=== PATIENT | male | born 1990 | race Caucasian/White ===

== ENCOUNTER 2019-12-12 13:26 | Emergency (ER) | payer MEDICAID, OTHER ==
[~2019-12-12] VITALS: Ht 182.9 cm; Wt 70.4 kg
[~2019-12-12 13:26] MED LIST: ACET1TAB12 PO; LIDOcaine 1% W/epiNEPHrine 1:100,000 20ml vial ONE
[2019-12-12] MEDS ORDERED: SULF1TAB49 PO (14:30)
[2019-12-12] MEDS ORDERED: CEPH250T PO (14:30)
[2019-12-12] MEDS ORDERED: cephalexin 250mg capsule PO STA (14:53)
[2019-12-12] MEDS ORDERED: sulfamethoxazole/trimethoprim DS (800/160mg) tablet PO ONE (14:55)
[2019-12-12 15:05] VITALS: BP 139/90
== END 2019-12-12 15:06 | disposition home or self-care (01) ==
LOC: ER 13:27
DX: L02.416 Cutaneous abscess of left lower limb (principal); L03.116 Cellulitis of left lower limb; F12.90 Cannabis use, unspecified, uncomplicated; F15.90 Other stimulant use, unspecified, uncomplicated; F10.99 Alcohol use, unspecified with unspecified alcohol-induced disorder; Z56.0 Unemployment, unspecified; Z98.890 Other specified postprocedural states; Z79.899 Other long term (current) drug therapy; Y90.9 Presence of alcohol in blood, level not specified
CPT/HCPCS: 10060; 99283

== ENCOUNTER 2020-09-19 14:37 | Emergency (ER) | payer MEDICAID, OTHER ==
[~2020-09-19] VITALS: Ht 185.4 cm; Wt 52.0 kg
[~2020-09-19 14:37] MED LIST changes: -LIDOcaine 1% W/epiNEPHrine 1:100,000 20ml vial ONE
[2020-09-19 14:41] VITALS: BP 142/93
[2020-09-19] MEDS ORDERED: CefTRIAXone 250MG IM Kit w/LIDOcaine IM ONE (16:00)
[2020-09-19] MEDS ORDERED: azithromycin 250mg tablet PO ONE (16:00)
== END 2020-09-19 16:28 | disposition home or self-care (01) ==
LOC: ER 14:38
DX: A64 Unspecified sexually transmitted disease (principal); F15.10 Other stimulant abuse, uncomplicated; F12.10 Cannabis abuse, uncomplicated; A54.9 Gonococcal infection, unspecified; Z79.899 Other long term (current) drug therapy
CPT/HCPCS: 36415; 87491; 87591; 96372; 99283; J0696

== ENCOUNTER 2020-10-27 19:20 | Emergency (ER) | payer SELFPAY ==
[~2020-10-27] VITALS: Ht 182.9 cm; Wt 63.6 kg
[2020-10-27 19:23] VITALS: BP 125/75
[2020-10-27] MEDS ORDERED: CefTRIAXone 250MG IM Kit w/LIDOcaine IM ONE (20:00)
[2020-10-27] MEDS ORDERED: azithromycin 250mg tablet PO ONE (20:00)
[2020-10-27 20:25] LABS: CLARITY,URINE CLEAR (Clear); COLOR,URINE YELLOW (Yellow); GLUCOSE, URINE NEGATIVE (Neg); KETONES,URINE NEGATIVE (Neg); LEUKOCYTE ESTERASE ,URINE SMALL (Neg); NITRITES, URINE NEGATIVE (Neg); OCCULT BLOOD,URINE TRACE-INTACT (Neg); PROTEIN,URINE NEGATIVE (Neg); UROBILINOGEN,URINE 0.2 E.U/dL (0.2-1.0)
[2020-10-27 20:27] LABS: UA COLLECTION TYPE CLN CATCH MIDSTREAM
[2020-10-27 20:32] LABS: RBC,URINE 0-2 /HPF (0-2); SQUAMOUS EPITHELIAL CELL,UR FEW /LPF (FEW); WBC,URINE TNTC /HPF (0-4)
[2020-10-27 20:34] LABS: BACTERIA,URINE 1+ /HPF (Neg)
[2020-10-27 20:37] LABS: MUCUS STRANDS MANY /LPF (Neg)
== END 2020-10-27 20:22 | disposition home or self-care (01) ==
LOC: ER 19:20
DX: A63.8 Other specified predominantly sexually transmitted diseases (principal); F12.90 Cannabis use, unspecified, uncomplicated; F15.90 Other stimulant use, unspecified, uncomplicated; Z56.0 Unemployment, unspecified; Z72.89 Other problems related to lifestyle; Z79.899 Other long term (current) drug therapy; Z72.0 Tobacco use
CPT/HCPCS: 36415; 81001; 87088; 87491; 87591; 96372; 99283; J0696

== ENCOUNTER 2021-02-03 16:49 | Emergency (ER) | payer MEDICAID ==
[~2021-02-03] VITALS: Ht 182.9 cm; Wt 71.0 kg
[2021-02-03 17:03] VITALS: BP 131/75
[2021-02-03] MEDS ORDERED: azithromycin 250mg tablet PO ONE (17:05)
[2021-02-03] MEDS ORDERED: CefTRIAXone 1000mg IM Kit (w/lidocaine diluent) IM STA (17:05)
== END 2021-02-03 17:43 | disposition home or self-care (01) ==
LOC: ER 16:50
DX: A64 Unspecified sexually transmitted disease (principal); F12.90 Cannabis use, unspecified, uncomplicated; F15.90 Other stimulant use, unspecified, uncomplicated; Z56.0 Unemployment, unspecified; Z72.89 Other problems related to lifestyle; Z79.899 Other long term (current) drug therapy
CPT/HCPCS: 36415; 87491; 87591; 96372; 99283; J0696

== ENCOUNTER 2021-05-25 16:38 | Emergency (ER) | payer MEDICAID, OTHER ==
[~2021-05-25] VITALS: Ht 182.9 cm; Wt 63.6 kg
[2021-05-25 16:48] VITALS: BP 116/79
[2021-05-25] MEDS ORDERED: CefTRIAXone 1000mg IM Kit (w/lidocaine diluent) IM STA (16:57)
[2021-05-25] MEDS ORDERED: azithromycin 250mg tablet PO ONE (17:00)
[2021-05-25 17:21] LABS: CLARITY,URINE CLOUDY (Clear); COLOR,URINE YELLOW (Yellow); GLUCOSE, URINE NEGATIVE (Neg); KETONES,URINE NEGATIVE (Neg); LEUKOCYTE ESTERASE ,URINE TRACE (Neg); NITRITES, URINE POSITIVE (Neg); OCCULT BLOOD,URINE TRACE-INTACT (Neg); PH,URINE 5.5 (4.8-8.0); PROTEIN,URINE 100 mg/dl (Neg)
[2021-05-25 17:22] LABS: UA COLLECTION TYPE CLN CATCH MIDSTREAM
[2021-05-25 17:32] LABS: CAL OXALATE CRYSTALS 2+ /HPF (NEGATIVE); MUCUS STRANDS MANY /LPF (Neg); SQUAMOUS EPITHELIAL CELL,UR FEW /LPF (FEW)
[2021-05-25 17:33] LABS: BACTERIA,URINE 1+ /HPF (Neg); RBC,URINE 0-2 /HPF (0-2); WBC,URINE TNTC /HPF (0-4)
== END 2021-05-25 20:10 | disposition home or self-care (01) ==
LOC: ER 16:39
DX: A64 Unspecified sexually transmitted disease (principal); R30.0 Dysuria; F12.90 Cannabis use, unspecified, uncomplicated; F15.90 Other stimulant use, unspecified, uncomplicated; Z72.89 Other problems related to lifestyle; Z56.0 Unemployment, unspecified; Z59.0 Homelessness; Z98.890 Other specified postprocedural states; Z79.899 Other long term (current) drug therapy
CPT/HCPCS: 36415; 81001; 87088; 87491; 87591; 96372; 99283; J0696

== ENCOUNTER 2021-10-18 11:52 | Emergency (ER) | payer OTHER ==
[~2021-10-18] VITALS: Ht 182.9 cm; Wt 60.0 kg
[2021-10-18 12:03] VITALS: BP 113/80
[2021-10-18] MEDS ORDERED: PENICILLIN G BENZATHINE 2,400,000 UNIT/4 ML SYRINGE IM STA (12:41)
[2021-10-18] MEDS ORDERED: CefTRIAXone 1000mg IM Kit (w/lidocaine diluent) IM STA (12:41)
[2021-10-18] MEDS ORDERED: azithromycin 250mg tablet PO ONE (12:45)
[2021-10-18] MEDS ORDERED: DOXY100C76 PO (13:08)
== END 2021-10-18 13:19 | disposition home or self-care (01) ==
LOC: ER 11:52
DX: L08.89 Other specified local infections of the skin and subcutaneous tissue (principal)
CPT/HCPCS: 36415; 86592; 87491; 87591; 96372; 99284; J0561; J0696

== ENCOUNTER → 2022-03-29 | Emergency (ER) | payer MEDICAID ==
[~2022-03-29] VITALS: Ht 182.9 cm; Wt 63.6 kg
[~2022-03-29] MED LIST changes: +SULF1TAB49 PO; +TRAM50TA2 PO; +sulfamethoxazole/trimethoprim DS (800/160mg) tablet PO ONE
[2022-03-29 10:35] VITALS: BP 129/74
== END | disposition home or self-care (01) ==
LOC: ER 10:19
DX: L02.31 Cutaneous abscess of buttock (principal); L03.317 Cellulitis of buttock; F12.90 Cannabis use, unspecified, uncomplicated; F15.90 Other stimulant use, unspecified, uncomplicated; Z98.890 Other specified postprocedural states; Z72.89 Other problems related to lifestyle; Z56.0 Unemployment, unspecified; Z59.00 Homelessness unspecified; Z79.2 Long term (current) use of antibiotics; Z79.899 Other long term (current) drug therapy
CPT/HCPCS: 10060; 99283

== ENCOUNTER 2022-06-10 15:05 | Emergency (ER) | payer MEDICAID ==
[~2022-06-10] VITALS: Ht 182.9 cm; Wt 63.6 kg
[~2022-06-10 15:05] MED LIST changes: -SULF1TAB49 PO; -TRAM50TA2 PO; -sulfamethoxazole/trimethoprim DS (800/160mg) tablet PO ONE
[2022-06-10 15:25] VITALS: BP 112/77
[2022-06-10 16:04] LABS: CLARITY,URINE SLIGHTLY CLOUDY (Clear); COLOR,URINE YELLOW (Yellow); GLUCOSE, URINE NEGATIVE (Neg); KETONES,URINE NEGATIVE (Neg); LEUKOCYTE ESTERASE ,URINE TRACE (Neg); NITRITES, URINE NEGATIVE (Neg); OCCULT BLOOD,URINE MODERATE (Neg); PH,URINE 5.5 (4.8-8.0); PROTEIN,URINE 30 mg/dl (Neg); UROBILINOGEN,URINE 0.2 E.U/dL (0.2-1.0)
[2022-06-10 16:17] LABS: UA COLLECTION TYPE NON-SPECIFIED
[2022-06-10 16:19] LABS: BACTERIA,URINE 1+ /HPF (Neg); CAL OXALATE CRYSTALS FEW /HPF (NEGATIVE); MUCUS STRANDS MANY /LPF (Neg); SQUAMOUS EPITHELIAL CELL,UR FEW /LPF (FEW); WBC,URINE TNTC /HPF (0-4)
[2022-06-10 16:20] LABS: RBC,URINE 0-2 /HPF (0-2)
[2022-06-10] MEDS ORDERED: CefTRIAXone 1000mg IM Kit (w/lidocaine diluent) IM STA (17:01)
[2022-06-10] MEDS ORDERED: azithromycin 250mg tablet PO ONE (17:05)
[2022-06-10] MEDS ORDERED: PENICILLIN G BENZATHINE 2,400,000 UNIT/4 ML SYRINGE IM STA (17:22)
== END 2022-06-10 18:36 | disposition home or self-care (01) ==
LOC: ER 15:06
DX: A64 Unspecified sexually transmitted disease (principal); F12.10 Cannabis abuse, uncomplicated; F15.10 Other stimulant abuse, uncomplicated; Z59.00 Homelessness unspecified; Z56.0 Unemployment, unspecified; Z79.1 Long term (current) use of non-steroidal anti-inflammatories (NSAID)
CPT/HCPCS: 36415; 81001; 86592; 87077; 87088; 87185; 96372; 99284; J0561; J0696

== ENCOUNTER 2022-07-23 22:07 | Emergency (ER) | payer SELFPAY ==
[~2022-07-23] VITALS: Ht 182.9 cm; Wt 63.6 kg
[2022-07-24 02:07] VITALS: BP 110/75
[2022-07-24] MEDS ORDERED: DOXY100C77 PO (03:45)
== END 2022-07-24 04:06 | disposition home or self-care (01) ==
LOC: ER 22:07
DX: A64 Unspecified sexually transmitted disease (principal); F12.90 Cannabis use, unspecified, uncomplicated; F15.20 Other stimulant dependence, uncomplicated; Z56.0 Unemployment, unspecified; Z59.00 Homelessness unspecified
CPT/HCPCS: 99283

== ENCOUNTER 2023-03-18 11:22 | Emergency (ER) | payer OTHER ==
[~2023-03-18] VITALS: Ht 182.9 cm; Wt 63.6 kg
[2023-03-18 11:36] VITALS: BP 115/81
--- NOTE | 2023-03-18 11:47 | NUR ---
Pt in [facility]. Pt c/o dysuria, and yellow discharge coming out of the tip x2 days. Pt educated to POC. Pt in agreement. Pending providers eval and treatment.
[2023-03-18] MEDS ORDERED: CefTRIAXone 1000mg IM Kit (w/lidocaine diluent) IM STA (11:50)
[2023-03-18] MEDS ORDERED: DOXYCYCLINE 100MG CAPSULE PO ONE (11:50)
[2023-03-18 11:52] LABS: CLARITY,URINE CLOUDY (Clear); COLOR,URINE YELLOW (Yellow); GLUCOSE, URINE NEGATIVE (Neg); KETONES,URINE NEGATIVE (Neg); LEUKOCYTE ESTERASE ,URINE SMALL (Neg); NITRITES, URINE NEGATIVE (Neg); OCCULT BLOOD,URINE SMALL (Neg); PH,URINE 5.5 (4.8-8.0); PROTEIN,URINE NEGATIVE (Neg); UROBILINOGEN,URINE 0.2 E.U/dL (0.2-1.0)
[2023-03-18 11:57] LABS: UA COLLECTION TYPE VOIDED
[2023-03-18 12:05] LABS: BACTERIA,URINE 2+ /HPF (Neg); WBC,URINE TNTC /HPF (0-4)
[2023-03-18 12:06] LABS: RBC,URINE 0-2 /HPF (0-2); SQUAMOUS EPITHELIAL CELL,UR NONE SEEN /LPF (FEW)
[2023-03-18] MEDS ORDERED: DOXY100C76 PO (12:06)
== END 2023-03-18 12:38 | disposition home or self-care (01) ==
LOC: ER 11:22
DX: A64 Unspecified sexually transmitted disease (principal); F12.10 Cannabis abuse, uncomplicated; F15.10 Other stimulant abuse, uncomplicated; Z59.00 Homelessness unspecified; Z56.0 Unemployment, unspecified; Z79.899 Other long term (current) drug therapy
CPT/HCPCS: 81001; 87088; 96372; 99283; J0696

== ENCOUNTER 2023-04-18 21:22 | Emergency (ER) | payer OTHER ==
[~2023-04-18] VITALS: Ht 182.9 cm; Wt 63.6 kg
[2023-04-18 21:37] VITALS: BP 131/80
[2023-04-18 23:15] LABS: CLARITY,URINE CLOUDY (Clear); COLOR,URINE YELLOW (Yellow); GLUCOSE, URINE NEGATIVE (Neg); KETONES,URINE NEGATIVE (Neg); LEUKOCYTE ESTERASE ,URINE SMALL (Neg); NITRITES, URINE NEGATIVE (Neg); OCCULT BLOOD,URINE TRACE-INTACT (Neg); PH,URINE 6.5 (4.8-8.0); PROTEIN,URINE NEGATIVE (Neg); UROBILINOGEN,URINE 0.2 E.U/dL (0.2-1.0)
[2023-04-18] MEDS ORDERED: CefTRIAXone 500MG IM Kit w/LIDOcaine IM ONE (23:20)
[2023-04-18] MEDS ORDERED: ondansetron 4mg rapidly disintigrating tab PO ONE (23:20)
[2023-04-18] MEDS ORDERED: DOXYCYCLINE 100MG CAPSULE PO STA (23:20)
[2023-04-18] MEDS ORDERED: metroNIDAZOLE 500mg tablet PO ONE (23:20)
[2023-04-18 23:29] LABS: UA COLLECTION TYPE VOIDED
[2023-04-18] MEDS ORDERED: CefTRIAXone 1000mg IM Kit (w/lidocaine diluent) IM ONE (23:30)
[2023-04-18 23:32] LABS: WBC,URINE 20-30 /HPF (0-4)
[2023-04-18 23:34] LABS: AMORPHOUS PHOSPHATES 3+; MUCUS STRANDS NONE SEEN /LPF (Neg); RBC,URINE 0-2 /HPF (0-2); SQUAMOUS EPITHELIAL CELL,UR NONE SEEN /LPF (FEW)
[2023-04-18 23:35] LABS: YEAST FEW /HPF (NEGATIVE)
[2023-04-18 23:37] LABS: BACTERIA,URINE 1+ /HPF (Neg)
[2023-04-18] MEDS ORDERED: DOXY-1 PO (23:40)
== END 2023-04-19 00:26 | disposition home or self-care (01) ==
LOC: ER 21:23
DX: A63.8 Other specified predominantly sexually transmitted diseases (principal); F12.10 Cannabis abuse, uncomplicated; F15.10 Other stimulant abuse, uncomplicated; Z79.899 Other long term (current) drug therapy
CPT/HCPCS: 36415; 81001; 87088; 87491; 87591; 96372; 99284; J0696

== ENCOUNTER 2024-02-26 07:08 | Emergency (ER) | payer MEDICAID ==
[~2024-02-26] VITALS: Ht 182.9 cm; Wt 66.5 kg
[2024-02-26 07:22] VITALS: BP 129/84; PULSE 99; RESP 16; TEMP 98.6; O2SAT 98
[2024-02-26] MEDS: azithromycin 250mg tablet PO ONE (09:04)
[2024-02-26] MEDS: CefTRIAXone 500MG IM Kit w/LIDOcaine IM ONE (09:05)
[2024-02-26 10:13] LABS: SYPHILIS SCREENING TEST POC NEGATIVE (Negative)
[2024-02-26] MEDS ORDERED: DOXY-1 PO (10:23)
== END 2024-02-26 10:31 | disposition home or self-care (01) ==
LOC: ER 07:08
DX: A64 Unspecified sexually transmitted disease (principal); F12.90 Cannabis use, unspecified, uncomplicated; F15.90 Other stimulant use, unspecified, uncomplicated; Z79.1 Long term (current) use of non-steroidal anti-inflammatories (NSAID); Z79.2 Long term (current) use of antibiotics
CPT/HCPCS: 36415; 87081; 96372; 99283; J0696

== ENCOUNTER 2024-06-02 20:01 | Emergency (ER) | payer MEDICAID ==
[~2024-06-02] VITALS: Ht 182.9 cm; Wt 63.9 kg
[2024-06-02 20:03] VITALS: BP 140/96; PULSE 109; RESP 16; O2SAT 99
[2024-06-02 20:20] LABS: CLARITY,URINE CLOUDY (Clear); COLOR,URINE RED (Yellow)
[2024-06-02 20:22] LABS: UA COLLECTION TYPE CLN CATCH MIDSTREAM
[2024-06-02 20:28] LABS: BACTERIA,URINE FEW /HPF (Neg); MUCUS STRANDS NONE SEEN /LPF (Neg); RBC,URINE TNTC /HPF (0-2); SQUAMOUS EPITHELIAL CELL,UR FEW /LPF (FEW); TRANSITIONAL EPI CELLS,URINE FEW /HPF; WBC,URINE 0-4 /HPF (0-4)
[2024-06-02 20:54] LABS: BASOPHILS % (AUTO) 0.4 % (0-1); EOSINOPHILS # (AUTO) 0.2 X10'3 (0-0.9); EOSINOPHILS % (AUTO) 1.9 % (0-6); HEMOGLOBIN 14.3 g/dl (14.0-17.9); LYMPHOCYTES # (AUTO) 3.3 X10'3 (1.1-4.8); LYMPHOCYTES % (AUTO) 38.1 % (21-51); MEAN CORPUSCULAR HGB CONC 34.1 g/dL (33.0-36.5); MEAN CORPUSCULAR VOLUME 87.9 FL (78-98); MEAN PLATELET VOLUME 6.7 FL (7.4-10.4); MONOCYTES # (AUTO) 0.6 X10'3 (0-0.9); MONOCYTES % (AUTO) 7.1 % (2-12); NEUTROPHILS # (AUTO) 4.6 X10'3 (1.8-7.7); NEUTROPHILS % (AUTO) 52.5 % (42-75); PLATELET COUNT 292 X10'3 (140-440); RED BLOOD COUNT 4.78 X10'6 (4.70-6.10); RED CELL DISTRIBUTION WIDTH 14.1 % (11.5-14.5); WHITE BLOOD COUNT 8.7 X10'3 (4.5-11.0)
[2024-06-02 21:10] LABS: ALANINE AMINOTRANSFERASE 53 U/L (12-78); ALBUMIN 4.1 G/DL (3.4-5.0); ALBUMIN/GLOBULIN RATIO 1.2 (1.1-1.5); ALKALINE PHOSPHATASE 83 IU/L (46-116); ANION GAP 8 (8-16); ASPARTATE AMINO TRANSFERASE 19 U/L (10-37); BILIRUBIN,TOTAL 0.4 MG/DL (0.1-1.0); BLOOD UREA NITROGEN 18 MG/DL (7-18); BUN/CREATININE RATIO 23.4 (10.0-20.0); CALCIUM 8.9 MG/DL (8.5-10.1); CHLORIDE 102 MMOL/L (99-107); CREATININE 0.77 MG/DL (0.60-1.10); GLUCOSE 100 MG/DL (70-104); LIPASE 33 U/L (16-77); POTASSIUM 3.8 MMOL/L (3.5-5.1); SODIUM 139 MMOL/L (135-145); TOTAL CARBON DIOXIDE 29.2 MMOL/L (24-32); TOTAL PROTEIN 7.6 G/DL (6.4-8.2); eCRCL 122 ML/MIN; eGFR > 90 ML/MIN
[2024-06-02] MEDS: buprenorphine/naloxone 8MG-2MG SUBlingual film SL SCH (23:44)
[2024-06-03] MEDS ORDERED: DOXY-460 PO (00:14)
[2024-06-03] MEDS: CefTRIAXone 1000mg IM Kit (w/lidocaine diluent) IM ONE (01:58)
[2024-06-03] MEDS: DOXYCYCLINE 100MG CAPSULE PO STA (02:01)
[2024-06-03 02:13] VITALS: TEMP 98
[2024-06-04] MEDS ORDERED: BUPR1FIL3 SL (10:07)
[2024-06-06 08:00] LABS: CHLAMYDIA TRACHOMATIS, NAA Negative (Negative)
== END 2024-06-03 02:16 | disposition home or self-care (01) ==
LOC: ER 20:02
DX: N34.2 Other urethritis (principal); R31.9 Hematuria, unspecified; F11.23 Opioid dependence with withdrawal; F12.90 Cannabis use, unspecified, uncomplicated; F15.90 Other stimulant use, unspecified, uncomplicated; Z79.1 Long term (current) use of non-steroidal anti-inflammatories (NSAID); Z98.890 Other specified postprocedural states; Z72.89 Other problems related to lifestyle; Z59.00 Homelessness unspecified; Z56.0 Unemployment, unspecified
CPT/HCPCS: 36415; 74176; 80053; 81001; 83690; 85025; 87088; 87491; 87591; 96372; 99285; J0696

== ENCOUNTER 2024-06-04 09:47 | Emergency (ER) | payer MEDICAID ==
[~2024-06-04] VITALS: Ht 182.9 cm; Wt 64.2 kg
[~2024-06-04 09:47] MED LIST changes: +DOXY-460 PO
[2024-06-04 09:52] VITALS: BP 120/80; PULSE 83; RESP 18; TEMP 97.8; O2SAT 99
[2024-06-04] MEDS ORDERED: BUPR1FIL3 SL (10:07)
[2024-06-04] MEDS: buprenorphine/naloxone 8MG-2MG SUBlingual film SL SCH ×2 (10:30→10:34)
== END 2024-06-04 10:42 | disposition home or self-care (01) ==
LOC: ER 09:48
DX: F11.23 Opioid dependence with withdrawal (principal); F12.90 Cannabis use, unspecified, uncomplicated; F15.90 Other stimulant use, unspecified, uncomplicated; Z76.0 Encounter for issue of repeat prescription; Z79.1 Long term (current) use of non-steroidal anti-inflammatories (NSAID); Z79.899 Other long term (current) drug therapy; Z98.890 Other specified postprocedural states; Z72.89 Other problems related to lifestyle; Z56.0 Unemployment, unspecified; Z59.00 Homelessness unspecified
CPT/HCPCS: 99283

== ENCOUNTER 2025-07-15 21:24 | Emergency (ER) | payer MEDICAID ==
[~2025-07-15] VITALS: Ht 182.9 cm; Wt 63.5 kg
[~2025-07-15 21:24] MED LIST changes: -DOXY-460 PO
--- NOTE | 2025-07-15 22:00 | Physician Documentation ---
History of Present Illness ~ Chief Complaint: Narcotic Withdrawl Stated Complaint: WITHDRAWLS Time Seen by MD: 21:59 Primary Medical Doctor: landon HPI Patient presents to the emergency room requesting food and help with his narcotic withdrawal. Medication Reconciliation Allergies: Coded Allergies: No Known Allergies (Unverified , 06/04/24) Scheduled Acetaminophen with Codeine (Tylenol with Codeine #3 Tablet), 1 TABLET PO Q6H Past Medical History Past Medical History: *INFECTIOUS DZ*, [place] Past Surgical History: orthopedic surgeries Patient History: Patient reports no known family medical history. Alcohol Use: Occasionally Drug Use: marijuana, methamphetamine Lives In: Homeless Occupation: unemployed Review of Systems ROS All review of systems negative except as per HPI Physical Exam Vital Signs: Temperature: 98.2, Source: Oral, Heart Rate: 62, Respiratory Rate: 18, BP: 109/75, Pulse Oximetry: 100, Weight: 63.500 Oxygen Flow Rate: 0 Physical Exam General: Patient is awake, alert, oriented x4 in mild distress, yawning Head: Normocephalic and atraumatic. Eyes: Conjunctival normal. EOMI. PERRL. ENT: Mucous membranes moist. Neck: Supple, trachea is midline. Chest: Clear to auscultation bilaterally without rales, rhonchi, or wheezes. There is no accessory muscle use or retractions. Cardiac: RRR without murmurs, gallops, or rubs. Skin: Noted pillow reactions Progress Results/Orders Results/Orders Vital Signs 07/15/25 21:42 Temp 98.2 Pulse 62 Resp 18 B/P (MAP) 109/75 Pulse Ox 100 O2 Flow Rate 0 Medical Decision Making Findings Patient presents to the emergency room with narcotics withdrawal. Patient's vital signs are stable and he had not feel emergent labs or imaging is necessary. We will treat him empirically for some withdrawal symptoms. Departure Disposition: HOME / SELF CARE / HOMELESS Impression: Primary Impression: Narcotic withdrawal epilepsy Condition: Fair Discharge Instructions: Narcotic Withdrawal Referrals: NO PRIMARY CARE PROVIDER (PCP) Signature Scribe Signature: No scribe Attestation: The note accurately reflects work and decisions made by me.Omid Mojica MD 07/15/25 22:04 OMID MOJICA MD Jul 15, 2025 22:00
[2025-07-15] MEDS: ketorolac trometh 15mg/ml vial 15 MG/ML ML IM ONE (22:28)
[2025-07-15 22:44] VITALS: BP 130/72; PULSE 68; RESP 16; TEMP 98.2; O2SAT 96
== END 2025-07-15 22:45 | disposition home or self-care (01) ==
LOC: ER 21:25
DX: F11.23 Opioid dependence with withdrawal (principal); G40.909 Epilepsy, unspecified, not intractable, without status epilepticus; F12.90 Cannabis use, unspecified, uncomplicated; F15.90 Other stimulant use, unspecified, uncomplicated; Z98.890 Other specified postprocedural states
CPT/HCPCS: 96372; 99284; J1885; Q0163

== ENCOUNTER 2025-10-10 11:22 | Inpatient (IN) | payer MEDICAID ==
[~2025-10-10] VITALS: Ht 182.9 cm; Wt 66.8 kg
[2025-10-10 12:00] LABS: MEAN PLATELET VOLUME 6.7 FL (7.4-10.4)
[2025-10-10 12:02] LABS: RED CELL DISTRIBUTION WIDTH 13.4 % (11.5-14.5)
[2025-10-10] MEDS ORDERED: CefTRIAXone 2gm/D5W 50ml BAG 50 ML IV ONE (12:05)
[2025-10-10 12:16] LABS: CREATININE 0.59 MG/DL (0.60-1.10); TOTAL CARBON DIOXIDE 26.2 MMOL/L (24-32); eCRCL 165 ML/MIN; eGFR > 90 ML/MIN
--- NOTE | 2025-10-10 12:19 | Physician Documentation ---
History of Present Illness ~ Chief Complaint: Hand pain Stated Complaint: R HAND PAIN Time Seen by MD: 12:12 Primary Medical Doctor: none HPI This is 35 year old male, with past medical history of Gonorrhea came to ER because he reports that he was cutting stuff with knife and got a cut in his right hand 2 days ago, He reports pain in right hand which is very painful 10/10 in intensity, radiating to upper arm, movement of hand makes pain worse, he cannot make a fist because of pain.Since yesterday he noticed increased swelling of hand. Denies Apart from that he also reports he had history of gonorrhea longtime ago for which he reports he was treated. Tetanus Within 5 Years: Yes Medication Reconciliation Allergies: Coded Allergies: No Known Allergies (Unverified , 10/10/25) Scheduled Acetaminophen with Codeine (Tylenol with Codeine #3 Tablet), 1 TABLET PO Q6H Past Medical History Past Medical History: *INFECTIOUS DZ*, [place] Past Surgical History: orthopedic surgeries Patient History: Patient reports no known family medical history. Alcohol Use: Occasionally Drug Use: marijuana, methamphetamine Lives In: Homeless Occupation: unemployed Review of Systems ROS All reviewed and negative except for pertinent positive findings mentioned in HPI. Physical Exam Vital Signs: Temperature: 97.0, Source: Temporal, Heart Rate: 96, Respiratory Rate: 22, BP: 134/83, Pulse Oximetry: 99, Weight: 66.800 Oxygen Flow Rate: 0 Physical Exam General: awake, alert oriented to place, time, and person HEENT: No pallor present, no icterus, moist mucous membranes Neck: No masses and tenderness Resp: Unlabored. Lungs clear to auscultation bilaterally. Chest: Normal expansion. Cardiovascular: Regular Rate and rhythm, normal S1 and S2 without murmur, rub or gallop Abdomen: Soft and non tender in epigastrium, no organomegaly, no guarding and rigidity, bowel sounds present Neuro: No focal weakness in the upper and lower limb muscles, power of the muscles 5/5 bilateral upper and lower extremities, normal reflexes bilaterally. Cranial nerves intact Extremities: No cyanosis,clubbing or edema Swelling of right hand and tender, laceration noted. Skin: Warm and Dry. No lesions Psych: Normal affect Progress Results/Orders Results/Orders Orders - LISANDRO HUDSON DO Culture Blood (10/10/25 11:29) Completed Orders - LISANDRO HUDSON DO Cbc/Diff (10/10/25 11:29) Procalcitonin (10/10/25 11:29) BMP (10/10/25 11:29) Lacticsepsis (10/10/25 11:29) Man Diff (10/10/25 11:44) Medications Received in ER Medications (Trade) Dose Ordered Sig/Hina Route PRN Reason Start Time Stop Time Status Last Admin Dose Admin Ceftriaxone Sodium 50 ml @ 100 mls/hr ONCE ONCE IV 10/10/25 12:05 10/10/25 12:34 DC 10/10/25 13:02 100 MLS/HR Vancomycin HCl 250 ml @ 166.236 mls/hr ONCE ONCE IV 10/10/25 12:05 10/10/25 13:35 DC 10/10/25 13:02 166.236 MLS/HR Clindamycin HCl/ Dextrose 50 ml @ 100 mls/hr ONCE ONCE IV 10/10/25 12:05 10/10/25 12:34 DC 10/10/25 13:01 100 MLS/HR (Boostrix vaccine syringe) 0.5 ml ONCE ONCE IMVAC 10/10/25 12:10 10/10/25 12:19 DC 10/10/25 13:03 0.5 ML (bacitracin ointment) 1 applic ONCE ONCE TP 10/10/25 12:10 10/10/25 12:19 DC 10/10/25 13:02 1 APPLIC Vital Signs 10/10/25 10/10/25 10/10/25 10/10/25 11:24 12:45 13:47 15:10 Temp 97.0 Pulse 96 85 105 Resp B/P (MAP) 134/83 141/87 (105) 134/80 (98) 126/82 (97) Pulse Ox 99 94 98 99 O2 Flow Rate 0 0 0 0 Laboratory Tests Test 10/10/25 11:44 10/10/25 11:55 10/10/25 13:06 White Blood Count 13.2 H Red Blood Count 4.53 L Hemoglobin 13.7 L Hematocrit 39.9 L Mean Corpuscular Volume 87.9 Mean Corpuscular Hemoglobin 30.2 Mean Corpuscular Hemoglobin Concent 34.4 Red Cell Distribution Width 13.4 Platelet Count 345 Mean Platelet Volume 6.7 L Neutrophils (%) (Auto) 71.7 Lymphocytes (%) (Auto) 21.1 Monocytes (%) (Auto) 5.8 Eosinophils (%) (Auto) 0.6 Basophils (%) (Auto) 0.8 Neutrophils # (Auto) 9.5 H Lymphocytes # (Auto) 2.8 Monocytes # (Auto) 0.8 Eosinophils # (Auto) 0.1 Basophils # (Auto) 0.1 CBC Comment Differential Total Cells Counted 100 Neutrophils % (Manual) 69.0 Band Neutrophils % 1.0 Lymphocytes % (Manual) 23.0 Monocytes % (Manual) 6.0 Eosinophils % (Manual) 1.0 Platelet Estimate Normal Red Blood Cell Morphology Normal Basophilic Stippling Sodium Level 132 L Potassium Level 4.3 Chloride Level 99 Carbon Dioxide Level 26.2 Anion Gap 7 L Blood Urea Nitrogen 30 H Creatinine 0.59 L Estimated GFR/1.73 m2 > 90 BUN/Creatinine Ratio 50.8 H Glucose Level 110 H Lactic Acid Level 0.5 Calcium Level 8.8 Albumin 4.3 Procalcitonin < 0.05 Chemistry Comments Erythrocyte Sedimentation Rate 8 Urine Specimen Description Urinal Urine Color Yellow Urine Clarity Clear Urine pH 6.5 Urine Specific [place] 1.020 Urine Protein Negative Urine Glucose (UA) Negative Urine Ketones Negative Urine Occult Blood Trace-intact Urine Nitrite Negative Urine Bilirubin Negative Urine Urobilinogen 0.2 Urine Leukocyte Esterase Negative Urine RBC 3-10 Urine WBC 0-4 Urine Squamous Epithelial Cells Few Urine Bacteria Few Urine Mucus Few Urine Culture Indicated Not ind Volume Urine Centrifuged 10 ml Urine Comment Urine Opiates Screen Negative Urine Methadone Screen Negative Urine Fentanyl Screen Positive H Urine Barbiturates Screen Negative Urine Phencyclidine Screen Negative Urine Amphetamines Screen Positive Urine Benzodiazepines Screen Negative Urine Cocaine Screen Negative Urine Cannabinoids Screen Positive Drug Screen Comment Microbiology Date/Time Source Procedure Growth Status 10/10/25 11:49 Blood Arm Right Blood Culture - Preliminary NEGATIVE (LESS THAN 24 HOURS) Resulted Medical Decision Making Additional information obtaine: N/A Findings Right hand cellulitis Possible abscess Differential Dx:Considerations: Include: Abscess, Cellulitis, Osteromyelitis Departure Disposition: 09 ADMITTED INPATIENT Admitted to Inpatient Unit: to hospitalist Impression: Primary Impression: Cellulitis of hand, right Condition: Stable Referrals: NO PRIMARY CARE PROVIDER (PCP) Additional Comment Seen with PA/JAR CAPPER Date: Oct 10, 2025 Time: 16:56 This is an attending supervisory note for the resident of record. I have personally participated in care of this patient, has been present during critical and/or griffith portions of the patient's service, participated in the evaluation, and provided major portion of medical decision-making, independently interpreted imaging and laboratory studies and participated in disposition of this patient. In brief this is a 35-year-old gentleman who comes in for evaluation of two days of painful right hand swelling after he self inflicted a cutting wound to the dorsal aspect of his PIP on the 3rd finger. He also has been platelet multiple other cutting wounds. He would not answer of why he did so. They hands swell up and it is very painful to close or to extend. The painful to palpation. Reports chills but no fever. He is homeless and does not have access to medical care. He does every drug Imaginable including methamphetamines and fentanyl. GENERAL: Awake, alert, oriented, GCS 15, no apparent distress, non-toxic appearing, answers questions, follows commands appropriately. HEENT: Atraumatic, normocephalic, pupils equal, extraocular muscles intact, sclerae anicteric, mucus membranes moist, oropharynx is clear, no stridor. NECK: supple, full active range of motion, trachea midline, no thyromegaly, no lymphadenopathy, no JVD. CARDIOVASCULAR: Tachycardic and regular rate/rhythm, no murmurs/gallops/rubs, Pulses are 2+ in all extremities and symmetric. Capillary refill less than 2 seconds. PULMONARY: Nonlabored, good air movement ,no respiratory distress, speaking in full sentences, clear to auscultation bilaterally, no wheezing, no ronchi, no rales, no accessory muscle use. GASTROINTESTINAL: Soft, non-tender, non-distended, normal active bowel sounds, no organomegaly, no pulsatile masses, no CVA tenderness. NEUROLOGIC: Lucid with normal mental status. Normal facial symmetry. Moves all extremities symmetrically and with purpose. No truncal ataxia. Speech is fluid without evidence of dysarthria or aphasia, no focal deficits appreciated. MUSCULOSKELETAL: There is full range of motion of all extremities. There is no joint pain or joint swelling or joint erythema. There is no muscle pain or tenderness or swelling. EXTREMITIES: warm, well-perfused, no cyanosis, no clubbing, no edema, no acute deformities. Skin: warm, dry, no rashes or lesions, no jaundice, no petechiae orpurpura. No ecchymosis. PSYCHIATRIC: Normal affect, normal insight, normal concentration. Focused exam: [Right hand is swollen and tender to palpation over the dorsum and over the 3rd digit. There is a healing scar/laceration over the PIP of the 3rd digit of the right hand. No purulent discharge. No obvious fluctuance. No crepitus. Range of motion is severely limited by pain. However, needle signs are positive only for finger held in flexion. There was no tenderness to palpation over the flexor surface. A cap refill less than 2 seconds. Calor noted. Neurologically intact. There are multiple other scars.] Facility Status: ED Holds, [facility] process The plan was discussed with the patient, who demonstrates clear understanding of the plan and is in agreement with the plan unless otherwise noted in the chart. All questions have been answered, all concerns were addressed unless otherwise documented. I was available throughout their ED stay for frequent reassessment and questions. Differential Diagnoses (considered and possible or likely): [Cellulitis, abscess, extensor tenosynovitis, flexor tenosynovitis, less likely necrotizing infection, less likely osteomyelitis, less likely infected joint] ??Differential Diagnoses (considered and unlikely, not requiring evaluation currently): [No evidence of neurovascular injury] MDM Data Please see [facility] for the following: Independent Historians and external Records Review. Historian: [Patient] Independent Historians: ?[None] Medication Management: [Reviewed medication list] Social History and determinants: [Reviewed] Please see the body of the note for the following: Any independent interpretations of ECG, imaging studies. All vitals signs/haemodynamics, ordered tests were independently reviewed and interpreted by myself. Nursing triage complaint and vitals reviewed, additional nursing notes were reviewed as available and I agree unless otherwise noted or documented in contradiction in the chart Vital Signs: Independently reviewed Labs: Independently interpreted Imaging: Independently interpreted Old Medical Records: Independently reviewed, see [facility] for relevant summary and information Pulse Oximetry: [96%] interpreted as [normal on room air] by me [Earth Boring Machine Operator: [Regular Rate, Regular rhythm, no ectopy, NSR] reviewed and interpreted by me] Additionally notably showing: [Hemodynamics reviewed. The patient is intermittently tachycardic, not febrile, no evidence of hypotension respiratory distress. CBC shows mild leukocytosis, no anemia, normal platelets, no significant neutrophilic predominance. Chemistry is notable for dehydration. Urine toxicology is positive for fentanyl, amphetamines, THC UA is nondiagnostic for UTI. X-ray hand shows no acute fracture or dislocation. No evidence of osteomyelitis.] Tests considered but not ordered include: [MRI hand, if necessary, can be done on an inpatient basis] Social Determinants of Health Impact: Patient was evaluated in [facility] [place] to healthcare due to below par ratio of patient to medical providers. [] Comorbid Conditions Impacting Present Evaluation and Care/Treatment: [Homelessness, polysubstance use] Management Discussions with other Healthcare Providers: [Hospitalist regarding admission] Treatment and Disposition Medication Management (Given or considered): [Antibiotics]. See EMR for details Consideration for Hospitalization/Escalation/Deescalation of Care: Admission for observation is necessary for further workup of his hand cellulitis/infection] ?ED Course:?[No clinical deterioration.] ?Shared decision making:?[] Code status:?FULL Please see the full Electronic Medical Record for full details of nursing documentation, medications list, other records of complete past medical history and conditions, vital signs, laboratory studies, and any radiologic study interpretations by radiologists. Portions of this note were completed using [employer] dictation software and as a result there may exist minor errors in spelling. I have reviewed elements of past family and social history and agree as included in note. Signature Scribe Signature: No scribe Attestation: Date: Oct 10, 2025 Time: 17:03 This note accurately reflects clinical decisions, work performed by myself, DO VIKRAM Flores SANJAY, RES Oct 10, 2025 12:19 LISANDRO HUDSON DO Oct 10, 2025 17:01
[2025-10-10 12:33] LABS: BANDS% (MANUAL) 1.0 % (0-10); EOSINOPHILS % (MANUAL) 1.0 % (0-6); LYMPHOCYTES % (MANUAL) 23.0 % (21-51); MONOCYTES % (MANUAL) 6.0 % (2-12); NEUTROPHILS % (MANUAL) 69.0 % (42-75)
[2025-10-10 12:34] LABS: PLATELET ESTIMATE NORMAL
[2025-10-10] MEDS: clindamycin-Cleocin 900mg/D5W 50 ML IV ONE (13:01)
[2025-10-10] MEDS: CefTRIAXone/D5W-Rocephin 1gm 50 ML IV ONE (13:02)
[2025-10-10] MEDS: vancomycin/NS 1 GM ADD-VANTAGE 250 ML IV ONE (13:02)
[2025-10-10] MEDS: bacitracin 15gm ointment TP ONE (13:02)
[2025-10-10] MEDS: TETanus/Pertussis (Acell)/Diphther VAC/PF (Tdap-Adult) 0.5ml syringe IMVAC ONE (13:03)
[2025-10-10 13:26] LABS: LEUKOCYTE ESTERASE ,URINE NEGATIVE (Neg); NITRITES, URINE NEGATIVE (Neg); OCCULT BLOOD,URINE TRACE-INTACT (Neg)
[2025-10-10 13:33] LABS: UA COLLECTION TYPE URINAL
[2025-10-10 13:35] LABS: MUCUS STRANDS FEW /LPF (Neg); SQUAMOUS EPITHELIAL CELL,UR FEW /LPF (FEW)
[2025-10-10 13:44] LABS: URINE AMPHETAMINE SCREEN POSITIVE (Neg); URINE BARBITUATE SCREEN NEGATIVE (Neg); URINE BENZODIAZEPINES SCREEN NEGATIVE (Neg); URINE CANNABINOID SCREEN POSITIVE (Neg); URINE COCAINE SCREEN NEGATIVE (Neg); URINE METHADONE SCREEN NEGATIVE (Neg); URINE OPIATE SCREEN NEGATIVE (Neg); URINE PHENCYCLIDINE SCREEN NEGATIVE (Neg)
--- NOTE | 2025-10-10 14:31 | RADIOLOGY REPORT ---
DI HAND, COMPLETE (3VW MIN), INDICATION: swelling TECHNICAL DATA: Frontal, oblique and lateral views were obtained of the right hand. COMPARISON: None FINDINGS: No fracture is identified. Joint spaces are maintained. Alignment is anatomic. Soft tissues are within normal limits. IMPRESSION: No acute fracture or dislocation of the right hand.
--- NOTE | 2025-10-10 14:34 | RADIOLOGY REPORT ---
EXAM: DI HAND, COMPLETE (3VW MIN) INDICATION: bilateral hand cellulitis, right hand abscess with incised wound over the 3 TECHNIQUE: 3 views of the left hand COMPARISON: DI HAND, COMPLETE (3VW MIN) on DOS: 10/10/25 FINDINGS/IMPRESSION: No radiographic evidence of an acute osseous abnormality. There is no acute fracture, osseous malalignment, or aggressive focal osseous lesion. Well corticated ossicle distal to the ulnar styloid process, which may be compatible with a prior triangular fibrocartilage complex injury. No abnormal osseous erosion, lucency, sclerosis to suggest osteomyelitis.
[2025-10-10] MEDS ORDERED: mag hydrox/Alum hydrox/simeth 30ml oral suspension PO PRN (17:40)
[2025-10-10] MEDS ORDERED: potassium Cl 20 mEq SR tablet PO PRN ×2 (17:40)
[2025-10-10] MEDS ORDERED: magnesium Cl slow-release 64mg tablet PO PRN (17:40)
[2025-10-10] MEDS ORDERED: magnesium sulf-water 4G/100mL 100 ML IV PRN (17:40)
[2025-10-10] MEDS ORDERED: HYDROcodone/acetaminophen 5mg/325mg tablet PO PRN (17:40)
[2025-10-10] MEDS ORDERED: magnesium hydroxide 30ml (MOM) UD suspension PO PRN (17:40)
[2025-10-10] MEDS ORDERED: magnesium sulf-water 2g/50mL 50 ML IV PRN (17:40)
[2025-10-10] MEDS ORDERED: potassium Cl 40MEQ/1/2NS 520ml 520 ML IV PRN (17:40)
--- NOTE | 2025-10-10 17:57 | HISTORY AND PHYSICAL-Residence ---
History & Physical Providers to CC Resident Creating Document: MAX BEATTYSINGHDANILO DESAI CC: ALEJANDRO ESPARZA MD ~ History of Present Illness Primary Medical Doctor: none Reason for Admit\Complaint: Right hand pain History of Present Illness Patient is a 35-year-old male with history of substance abuse and STDs who came to the ED due to hand pain. Patient reports that 2 days ago he cut the dorsum of his right middle finger, after which he did not seek any medical attention. Patient reports that for the past 48 hours he has experienced increasing pain in the hand, 10/10 in intensity, sharp, continuous, along with decreased range of motion and purulent discharged. He denies fevers or chills, or any other subjective symptoms at this point. In ED, patient has remained hemodynamically stable. He received a dose of ceftriaxone, vancomycin and clindamycin. Hand x- ray ruled out fractures or early signs of osteomyelitis. Allergies: Coded Allergies: No Known Allergies (Unverified , 10/10/25) Home Medications Home Medications Active Tylenol with Codeine #3 Tablet (Acetaminophen with Codeine) 1 Each Tablet 1 Tablet PO Q6H Past Medical History Past Medical History Substance abuse STDs (gonorrhea, chlamydia) Past Surgical History Surgical History Comment None Family History Family History: Patient reports no known family medical history. Past Social History Smoking: Cigarettes (Half a pack a day since age 13) Alcohol Use: Occasionally Drug Use: Marijuana, Methamphetamine (Smoked, since age 13) Lives with: Other Lives In: Homeless Occupation: unemployed ROS ROS All systems were reviewed and found negative except for pertinent positives mentioned in HPI Exam Vitals: Vital Signs Date Time Temp Pulse Resp B/P (MAP) Pulse Ox O2 Delivery O2 Flow Rate FiO2 10/10/25 15:10 105 20 126/82 (97) 99 0 10/10/25 11:24 97.0 General: General: awake, alert oriented to place, time, and person, disheveled HEENT: No pallor present, no icterus, moist mucous membranes Neck: No masses and tenderness Resp: Unlabored. Lungs clear to auscultation bilaterally. Chest: Normal expansion Cardiovascular: Regular Rate and rhythm, normal S1 and S2 without murmur, rub or gallop Abdomen: Soft and nontender, no organomegaly, no guarding and rigidity, bowel sounds present Neuro: No focal weakness in the upper and lower limb muscles, power of the muscles 5/5 bilateral upper and lower extremities, normal reflexes bilaterally. Cranial nerves intact Extremities: He has a 1 cm wound on dorsum of right middle finger, right hand is significantly swollen and exquisitely tender to palpation, range of motion is significantly decreased. No crepitus is palpated, although examination is limited due to pain. No cyanosis or clubbing Skin: Warm and Dry. As above Psych: Normal affect Diagnostic Data Last Recorded Lab Results: 10/10/25 1144 10/10/25 1144 Advance Care Planning Advanced Care plannin - 30 Minutes Additional Plan Patient is a 35-year-old male with history of substance abuse and STDs. Admitted for management of sepsis in the setting of right hand cellulitis with suspected tenosynovitis/septic arthritis. Will also rule out necrotizing infection. Sepsis 2/2 Right hand cellulitis Suspected tenosynovitis/septic arthritis Necrotizing infection ruled out WBC 13.2, Patient is tachycardic and tachypneic Preliminary blood cultures are negative Hand x-rays are unremarkable CT scan of the right hand shows no soft tissue gas or fluid collection Received single dose of ceftriaxone, vancomycin and clindamycin in ED Received tetanus vaccine in ED Continue ceftriaxone 2 g daily Continue vancomycin Ortho consulted. Recommended right hand MRI, awaiting formal consult Substance abuse, methamphetamines Tobacco abuse Substance abuse navigator and social work coordinator consults in place Code Status: Full code DVT prophylaxis: Lovenox Analgesia/sedation: Morphine/[place] Nutrition: Regular diet Prognosis: Guarded Disposition: Admit to surgical unit. Continue medical management Danilo De La Torre MD Internal Medicine Resident PGY-2 Date of Service: Oct 10, 2025 Billing Provider: ALEJANDRO ESPARZA MD, LEONARDO LUIS Oct 10, 2025 17:57
--- NOTE | 2025-10-10 18:26 | RADIOLOGY REPORT ---
INDICATION: Right hand cellulitis COMPARISON: Radiograph 10/10/2025 TECHNIQUE: CT of the right was performed without contrast. Volume transverse images were obtained and reconstructed in multiple planes using bone and soft tissue algorithms. CONTRAST: None Radiation Dose Information: CT Dose: CTDI volume is 14 mGy. Dose-length product is 445 mGy*cm FINDINGS: The alignment is normal. No acute fracture, dislocation, or focal osseous lesions. Mild soft tissue edema. No loculated fluid collection within limitation of this noncontrast study. No soft tissue gas. No radiopaque foreign body. IMPRESSION: Mild soft tissue edema. No soft tissue gas. No loculated fluid collection within limitation of this noncontrast study. No acute fracture. All CT scans at this medical facility are performed using dose modulation techniques as appropriate to a performed exam including the following: Automated exposure control was utilized; adjustment of the MA and/or KV according to patient size; and use of iterative reconstruction technique.
[2025-10-10] MEDS: normal saline 1000ml 1,000 ML IV ONE ×2 (18:33)
[2025-10-10] MEDS ORDERED: NO HOME MEDS (18:48)
[2025-10-10] MEDS: ondansetron/PF 4mg/2ml inj IV PRN (19:28)
[2025-10-10] MEDS: K and/or MAG REPLACEMENT MC SCH (20:00)
[2025-10-10] MEDS: normal saline 1000ml 1,000 ML IV SCH (20:00)
[2025-10-10] MEDS: enoxaparin 40mg/0.4ml syringe SQ SCH (20:00)
[2025-10-10] MEDS: docusate sod 100mg capsule PO SCH (20:00)
[2025-10-10 21:00] VITALS: BP 113/69; PULSE 93; RESP 14; TEMP 99.3; O2SAT 93
[2025-10-10] MEDS: vancomycin/NS 1 GM ADD-VANTAGE 250 ML IV SCH (21:31)
[2025-10-11 03:07] VITALS: RESP 16; O2SAT 93
[2025-10-11 06:30] VITALS: BP 114/69; PULSE 85; RESP 18; TEMP 98.2; O2SAT 99
[2025-10-11 06:38] LABS: MEAN PLATELET VOLUME 7.3 FL (7.4-10.4); RED CELL DISTRIBUTION WIDTH 13.7 % (11.5-14.5)
[2025-10-11 06:39] LABS: CREATININE 0.59 MG/DL (0.60-1.10); TOTAL CARBON DIOXIDE 25.8 MMOL/L (24-32); eCRCL 165 ML/MIN; eGFR > 90 ML/MIN
[2025-10-11 07:00] VITALS: RESP 16; O2SAT 99
[2025-10-11] MEDS: nicotine 21mg patch - 24 hr TD SCH (09:08)
[2025-10-11 10:00] VITALS: BP 119/68; PULSE 93; RESP 18; TEMP 98.1; O2SAT 95
[2025-10-11] MEDS ORDERED: PERFLUTREN PROTEIN-A MICROSPHR (Optison) 0.22 MG/ML 3ML VIAL IV ONE (10:30)
[2025-10-11] MEDS ORDERED: morphine 4 MG/ML inj SYRINge IV PRN (12:05)
[2025-10-11] MEDS: VANCOMYCIN LEVEL IV ONE (12:30)
--- NOTE | 2025-10-11 13:10 | PROGRESS NOTE- Residence ---
Progress Note - Resident Providers to CC Resident Creating Document: DANILO CLEMENT CC: ALEJANDRO ESPARZA MD ~ Antibiotic Timeout Antibiotic Ordered?: Yes Subjective Patient was seen and examined at bedside today. He reports improvement of hand pain at rest, but continues with pain upon movement, and decreased range of motion. He has remained afebrile Objective Vital Signs Date Time Temp Pulse Resp B/P (MAP) Pulse Ox O2 Delivery O2 Flow Rate FiO2 10/11/25 10:00 98.1 93 18 119/68 (85) 95 Room Air 10/11/25 08:00 0.0 Result Diagram: 10/11/25 0536 10/11/25 0536 General: awake, alert oriented to place, time, and person, disheveled HEENT: No pallor present, no icterus, moist mucous membranes Neck: No masses and tenderness Resp: Unlabored. Lungs clear to auscultation bilaterally. Chest: Normal expansion Cardiovascular: Regular Rate and rhythm, normal S1 and S2 without murmur, rub or gallop Abdomen: Soft and nontender, no organomegaly, no guarding and rigidity, bowel sounds present Neuro: No focal weakness in the upper and lower limb muscles, power of the muscles 5/5 bilateral upper and lower extremities, normal reflexes bilaterally. Cranial nerves intact Extremities: He has a 1 cm wound on dorsum of right middle finger, right hand is significantly swollen and exquisitely tender to palpation, however, improved. Range of motion is still significantly decreased. No crepitus is palpated, although examination is limited due to pain. No cyanosis or clubbing Skin: Warm and Dry. As above Psych: Normal affect Plan Plan Patient is a 35-year-old male with history of substance abuse and STDs. Admitted for management of sepsis in the setting of right hand cellulitis with suspected tenosynovitis/septic arthritis. Sepsis 2/2 Right hand cellulitis Suspected tenosynovitis/septic arthritis Necrotizing infection ruled out WBC normalized today Procalcitonin is normal He has remained afebrile and hemodynamically stable Preliminary blood cultures are negative Hand x-rays are unremarkable CT scan of the right hand shows no soft tissue gas or fluid collection Received single dose of ceftriaxone, vancomycin and clindamycin in ED Received tetanus vaccine in ED Continue ceftriaxone 2 g daily, day 2 Continue vancomycin, day 2 Ortho consulted. 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 Continue medical management Danilo Laureano MD Internal Medicine Resident PGY-2 Date of Service: Oct 11, 2025 Billing Provider: ALEJANDRO ESPARZA MD, LEONARDO LUIS Oct 11, 2025 13:10
[2025-10-11] MEDS: CefTRIAXone 2gm/D5W 50ml BAG 50 ML IV SCH (13:24)
--- NOTE | 2025-10-11 15:18 | RADIOLOGY REPORT ---
CLINICAL HISTORY: Suspected right hand tenosynovitis. TECHNIQUE: Multi sequence multi planar MRI images of the right hand were obtained without IV contrast. COMPARISON: CT CT UPPER EXTREMITIES on DOS: 10/10/25, DI HAND, COMPLETE (3VW MIN) on DOS: 10/10/25, DI HAND, COMPLETE (3VW MIN) on DOS: 10/10/25 FINDINGS: Motion artifact limits evaluation. There is moderate subcutaneous edema, most prominent along the dorsal aspect of the hand and in the 3rd digit, and to a lesser extent the 2nd and 4th digits. No organized fluid collection identified. There is mild tenosynovitis of the 3rd digit flexor tendons near the level of the MCP joint and extending to the level of the PIP joint. The subcutaneous edema and areas of ill-defined fluid extend adjacent to the 2nd through 4th digit extensor tendons, although no organized fluid centered around these tendons to suggest tenosynovitis. No definite marrow signal abnormality given the limitations of the examination. No significant joint effusion. Visualized musculature appears unremarkable. IMPRESSION: 1. Motion limited study. 2. Moderate subcutaneous edema,likely cellulitis in the appropriate clinical setting as detailed above. 3. Mild tenosynovitis of the 3rd digit flexor tendons. 4. No organized subcutaneous fluid collection identified to suggest a discrete abscess. Limited evaluation for abscess without postcontrast imaging and due to artifact. No visualized marrow signal abnormality to suggest osteomyelitis given the limitations of the examination.
[2025-10-11] MEDS: VANCOMYCIN/WATER FOR INJ (PEG) 1.5GM/300 ML IVPB IV SCH (16:28)
[2025-10-11] MEDS: morphine 4 MG/ML inj SYRINge IV PRN (16:40)
[2025-10-11 18:00] VITALS: BP 132/81; PULSE 94; RESP 20; TEMP 98.6; O2SAT 98
--- NOTE | 2025-10-11 18:02 | CARDIOLOGY REPORT ---
APPROVED REPORT EXAM: Comprehensive 2D, Doppler, and color-flow Echocardiogram. 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 113.8 cm/s AoV VTI 17.7 cm AO Peak GR. 5.2 mmHg AO Mean GR. 3 mmHg LVOT VTI 23.22 cm LVOT Peak Louie. 101.8 cm/s MARTHA(VTI)/BSA 4.69 cm2/m2 MARTHA (VTI) 4.69 cm2 AV DI 1.31 % Mitral Valve MV E Velocity 67.2 cm/s MV Peak Gr. 3 mmHg MV DECEL TIME 120 ms MV A Velocity 84.0 cm/s MV PHT 40 ms E/A Ratio 0.8 MVA (PHT) 5.50 cm2 MV VMax 81.5 cm/s TDI Lateral E' P. V 20.21 cm/s E/Lateral E' 3.3 Pulmonary Valve PAEDP 13.03 mmHg Tricuspid Valve TR P. Velocity 138 cm/s RAP ESTIMATE 10 mmHg TR Peak Gr. 8 mmHg RVSP 18 mmHg LEFT VENTRICLE Normal LV size and wall thickness. Overall systolic function is normal. LVEF is 60-65%. RIGHT VENTRICLE Right ventricle appears mildly dilated with adequate function. ATRIA The left atrium size is normal. AORTIC VALVE Trileaflet AV appears mildly sclerotic without stenosis. No insufficiency. No vegetation seen. MITRAL VALVE Mitral valve leaflets are mildly thickened and elongated. No stenosis. Trace regurgitation. No vegetation seen. TRICUSPID VALVE The tricuspid valve is normal in structure with trace regurgitation. No vegetation seen. PULMONIC VALVE The pulmonary valve is normal in structure with trace regurgitation. No vegetation seen. GREAT VESSELS The aortic root is normal in size. The IVC is normal in size and collapses >50% with inspiration. PERICARDIUM Normal pericardium. No effusion. Other Information Study Quality: Fair due to constant patient movement. Conclusion Normal LV size and wall thickness. Overall systolic function is normal. LVEF is 60-65%. Right ventricle appears mildly dilated with adequate function. The left atrium size is normal. Trileaflet AV appears mildly sclerotic without stenosis. No insufficiency. No vegetation seen. Mitral valve leaflets are mildly thickened and elongated. No stenosis. Trace regurgitation. No vegetation seen. The tricuspid valve is normal in structure with trace regurgitation. No vegetation seen. The pulmonary valve is normal in structure with trace regurgitation. No vegetation seen. Normal pericardium. No effusion.
[2025-10-11 22:00] VITALS: BP 142/72; PULSE 68; RESP 18; TEMP 97.3; O2SAT 100
[2025-10-12 06:19] LABS: MEAN PLATELET VOLUME 7.5 FL (7.4-10.4); RED CELL DISTRIBUTION WIDTH 13.3 % (11.5-14.5)
[2025-10-12 06:35] LABS: CREATININE 0.45 MG/DL (0.60-1.10); TOTAL CARBON DIOXIDE 24.0 MMOL/L (24-32); eCRCL 216 ML/MIN; eGFR > 90 ML/MIN
[2025-10-12 06:56] VITALS: BP 117/74; PULSE 74; RESP 16; TEMP 99.2; O2SAT 99
[2025-10-12] MEDS ORDERED: VANCOMYCIN LEVEL IV ONE (15:30)
--- NOTE | 2025-10-12 17:38 | DISCHARGE SUMMARY-Residence ---
Discharge Summary Providers to Resident Creating Document: ADORE PINZON, RES ~ Discharge Summary Admission Diagnosis: R. HAND CELLULITIS Admission Diagnosis Comment: Right hand Cellulitis Hospital Course DATE OF ADMISSION: 10/10/25 DATE OF DISCHARGE: 10/12/25, patient left against medical advice Discharge Diagnosis\Comment: Sepsis 2/2 Right hand cellulitis Substance abuse, methamphetamines/fentanyl Tobacco abuse Operations\Procedures: None Consultants: , orthopedist Complications: None Condition on DC: Stable Discharge Summary: Course in the hospital: Patient is a 35-year-old male with history of substance abuse and STDs who came to the ED due to hand pain. Patient reports that 2 days ago he cut the dorsum of his right middle finger, after which he did not seek any medical attention. Patient reports that for the past 48 hours he has experienced increasing pain in the hand, 10/10 in intensity, sharp, continuous, along with decreased range of motion and purulent discharged. He denies fevers or chills, or any other subjective symptoms at this point. In ED, patient has remained hemodynamically stable. He received a dose of ceftriaxone, vancomycin and clindamycin. Hand x- ray ruled out fractures or early signs of osteomyelitis. Patient had elevated white count.Lactate and procalcitonin are normal. MRI ruled out osteomyelitis. Patient was started on IV Rocephin and vancomycin. WBC normalized patient remained afebrile and hemodynamically stable on day 2 . patient urine toxicology is positive for cannabinoids and amphetamines. Patient wants to go against the medical advice. Risks and complications are explained to the patient, Care plan discussed with patient who is awake alert, all questions answered and all concerns addressed appropriately. All labs, diagnostic workup are discussed with patient and in detail. But patient still left against the medical advice . Imaging: Left Hand X ray-10/10/25: -No radiographic evidence of an acute osseous abnormality. There is no acute fracture, osseous malalignment, or aggressive focal osseous lesion. Well corticated ossicle distal to the ulnar styloid process, which may be compatible with a prior triangular fibrocartilage complex injury. -No abnormal osseous erosion, lucency, sclerosis to suggest osteomyelitis. Right Hand X ray-10/10/25: No acute fracture or dislocation of the right hand. Right Upper extremity CT-10/10/25: -Mild soft tissue edema. No soft tissue gas. No loculated fluid collection within limitation of this noncontrast study. -No acute fracture. Echocardiogram-10/11/25: Normal LV size and wall thickness. Overall systolic function is normal. LVEF is 60-65%. Right ventricle appears mildly dilated with adequate function. The left atrium size is normal. Trileaflet AV appears mildly sclerotic without stenosis. No insufficiency. No vegetation seen. Mitral valve leaflets are mildly thickened and elongated. No stenosis. Trace regurgitation. No vegetation seen. The tricuspid valve is normal in structure with trace regurgitation. No vegetation seen. The pulmonary valve is normal in structure with trace regurgitation. No vegetation seen. Normal pericardium. No effusion. Right Upper extremity MRI-10/11/25: 1. Motion limited study. 2. Moderate subcutaneous edema,likely cellulitis in the appropriate clinical setting as detailed above. 3. Mild tenosynovitis of the 3rd digit flexor tendons. 4. No organized subcutaneous fluid collection identified to suggest a discrete abscess. Limited evaluation for abscess without postcontrast imaging and due to artifact. No visualized marrow signal abnormality to suggest osteomyelitis given the limitations of the examination. Vital Signs Date Time Temp Pulse Resp B/P (MAP) Pulse Ox O2 Delivery O2 Flow Rate FiO2 10/12/25 06:56 99.2 74 16 117/74 (88) 99 Room Air 10/11/25 08:00 0.0 Laboratory Tests Test 10/11/25 05:36 10/11/25 12:11 10/12/25 05:06 White Blood Count 9.6 X10'3 11.5 X10'3 Red Blood Count 4.50 X10'6 4.69 X10'6 Hemoglobin 13.6 g/dl 14.0 g/dl Hematocrit 39.6 % 41.4 % Mean Corpuscular Volume 88.1 FL 88.2 FL Mean Corpuscular Hemoglobin 30.2 PG 29.7 PG Mean Corpuscular Hemoglobin Concent 34.3 g/dL 33.7 g/dL Red Cell Distribution Width 13.7 % 13.3 % Platelet Count 300 X10'3 337 X10'3 Mean Platelet Volume 7.3 FL 7.5 FL Neutrophils (%) (Auto) 64.6 % 70.3 % Lymphocytes (%) (Auto) 27.2 % 21.4 % Monocytes (%) (Auto) 6.6 % 7.4 % Eosinophils (%) (Auto) 0.6 % 0.1 % Basophils (%) (Auto) 1.0 % 0.8 % Neutrophils # (Auto) 6.2 X10'3 8.1 X10'3 Lymphocytes # (Auto) 2.6 X10'3 2.5 X10'3 Monocytes # (Auto) 0.6 X10'3 0.8 X10'3 Eosinophils # (Auto) 0.1 X10'3 0.0 X10'3 Basophils # (Auto) 0.1 X10'3 0.1 X10'3 CBC Comment Sodium Level 137 MMOL/L 134 MMOL/L Potassium Level 3.9 MMOL/L 3.6 MMOL/L Chloride Level 102 MMOL/L 101 MMOL/L Carbon Dioxide Level 25.8 MMOL/L 24.0 MMOL/L Anion Gap 9 9 Blood Urea Nitrogen 13 MG/DL 15 MG/DL Creatinine 0.59 MG/DL 0.45 MG/DL Estimated GFR/1.73 m2 > 90 ML/MIN > 90 ML/MIN BUN/Creatinine Ratio 22.0 33.3 Glucose Level 155 MG/DL 100 MG/DL Calcium Level 8.4 MG/DL 8.8 MG/DL Magnesium Level 1.9 MG/DL 2.0 MG/DL Total Bilirubin 0.9 MG/DL 0.5 MG/DL Aspartate Amino Transf (AST/SGOT) 13 U/L 14 U/L Alanine Aminotransferase (ALT/SGPT) 36 U/L 32 U/L Alkaline Phosphatase 72 IU/L 67 IU/L Total Protein 7.4 G/DL 7.5 G/DL Albumin 3.6 G/DL 3.6 G/DL Globulin 3.8 G/DL 3.9 G/DL Albumin/Globulin Ratio 0.9 0.9 Procalcitonin < 0.05 NG/ML Chemistry Comments Vancomycin Level Trough 6.0 ug/mL Examination on discharge: General: awake, alert oriented to place, time, and person, disheveled HEENT: No pallor present, no icterus, moist mucous membranes Neck: No masses and tenderness Resp: Unlabored. Lungs clear to auscultation bilaterally. Chest: Normal expansion Cardiovascular: Regular Rate and rhythm, normal S1 and S2 without murmur, rub or gallop Abdomen: Soft and nontender, no organomegaly, no guarding and rigidity, bowel sounds present Neuro: No focal weakness in the upper and lower limb muscles, power of the muscles 5/5 bilateral upper and lower extremities, normal reflexes bilaterally. Cranial nerves intact Extremities: He has a 1 cm wound on dorsum of right middle finger, right hand is significantly swollen and exquisitely tender to palpation, however, improved. Range of motion is still significantly decreased. No crepitus is palpated, although examination is limited due to pain. No cyanosis or clubbing Skin: Warm and Dry. As above Psych: Normal affect *Problems/Diagnosis: (1) Sepsis (2) Cellulitis of right hand (3) Substance abuse (4) Tobacco abuse Total Time Spent on D/C: > 30 Minutes Date of Service: Oct 12, 2025 Billing Provider: ALEJANDRO ESPARZA MD, SUNIL KUMAR, RES Oct 12, 2025 17:37
== END 2025-10-12 07:40 | disposition left against medical advice (07) | DRG 720 ==
LOC: ER 11:23 → ED HOLD 17:46 → SUR 3N 20:55
PROVIDERS: ADMIT Family Medicine; ATTEND Family Medicine
DX: A41.9 Sepsis, unspecified organism (principal); Z59.00 Homelessness unspecified; L03.113 Cellulitis of right upper limb; F11.10 Opioid abuse, uncomplicated; Z53.29 Procedure and treatment not carried out because of patient's decision for other reasons; F15.10 Other stimulant abuse, uncomplicated; Z72.0 Tobacco use; Z56.0 Unemployment, unspecified
CPT/HCPCS: 36415; 73130; 73200; 73221; 80048; 80053; 80202; 80305; 81001; 83605; 83735; 84145; 85007; 85025; 85651; 87040; 87081; 90715; 93306; 96365; 96368; 99285; A6222; A6258; A6449; G0378; J0696; J1650; J2270; J2405; J3373; J3375; J3490; J7030